=== PATIENT | male | born 1960 | race Caucasian/White ===

== ENCOUNTER 2017-07-01 22:58 | Emergency (ER) | payer BC ==
[~2017-07-01] VITALS: Ht 190.5 cm; Wt 89.8 kg
--- NOTE | 2017-07-01 22:58 | NUR ---
PT BIBRA FROM HOME TO ER BED 15. HERE FOR ETOH. NO OBVIOUS TRAUMA NOTED. GOWNED AND PLACED ONM MONITOR. STABLE VITALS. AWAITNG MD LYONS.
--- NOTE | 2017-07-01 23:49 | NUR ---
DR MENARD AT BEDSIDE FOR EVAL.
--- NOTE | 2017-07-02 04:47 | NUR ---
CALLED [facility] TO EXPEDITE READ
--- NOTE | 2017-07-02 05:15 | NUR ---
pt ok to discharge per dr squires. Patient discharged to home in stable condition. Written and verbal after care instructions given. Patient verbalizes understanding of instruction.Patient is awake and alert to self, day, and place. pt ambulatory with a steady gait
[2017-07-02 05:30] VITALS: BP 134/79
== END 2017-07-02 05:14 | disposition home or self-care (01) ==
LOC: ER 23:00
DX: S09.8XXA Other specified injuries of head, initial encounter (principal); F10.129 Alcohol abuse with intoxication, unspecified; X58.XXXA Exposure to other specified factors, initial encounter; Y93.89 Activity, other specified; Y92.89 Other specified places as the place of occurrence of the external cause; Y99.8 Other external cause status
CPT/HCPCS: 70450-TC; 72125-TC; 82962-TC; A4606; Z7610